=== PATIENT | male | born 1960 | race Caucasian/White ===

== ENCOUNTER 2021-03-18 12:06 | Outpatient (CLI) | payer OTHER | END 2021-03-18 14:16 | disposition home or self-care (01) | LOC: TOM 12:06 | PROVIDERS: ATTEND Surgery | DX: K40.20 Bilateral inguinal hernia, without obstruction or gangrene, not specified as recurrent (principal) ==

== ENCOUNTER 2021-04-14 07:00 | Day surgery (SDC) | payer OTHER ==
[~2021-04-14 07:00] MED LIST: SIMVASTATIN80 MG PO
[2021-04-14] MEDS ORDERED: ULTRAM50 MG PO (10:28)
[2021-04-14] MEDS ORDERED: TYLENOL ARTHRI650 MG PO (10:28)
[2021-04-14] MEDS ORDERED: MIRALAX17 GM PO (10:28)
[2021-04-14] MEDS ORDERED: NEURONTIN300 MG PO (10:28)
== END 2021-04-14 18:10 | disposition home or self-care (01) ==
LOC: CIR.AMB 07:00
PROVIDERS: ATTEND Surgery
DX: K40.91 Unilateral inguinal hernia, without obstruction or gangrene, recurrent (principal); Z20.822 Contact with and (suspected) exposure to COVID-19